=== PATIENT | male | born 1975 | race Caucasian/White ===

== ENCOUNTER 2021-12-13 03:01 | Emergency (ER) | payer OTHER ==
[~2021-12-13] VITALS: Ht 165.1 cm; Wt 84.8 kg
[2021-12-13 03:38] VITALS: BP 150/90
--- NOTE | 2021-12-13 03:42 | NUR ---
to lobby a/w bed ambulatory
--- NOTE | 2021-12-13 04:57 | NUR ---
MD Bonilla called for patient-- no answer at this time
--- NOTE | 2021-12-13 05:35 | NUR ---
MD Bonilla called for patient-- no answer at this time
--- NOTE | 2021-12-13 05:35 | NUR ---
PATIENT LEFT WITHOUT BEING SEEN BY DR ORTIZ. NO FURTHER CARE PROVIDED FOR PATIENT.
--- NOTE | 2021-12-13 05:35 | NUR ---
Elliot mcgowan in [facility] - 12/13/21 at 0541 by [email or web address] PT LORAINE
== END 2021-12-13 04:57 | disposition left against medical advice (07) ==
LOC: MED 03:01
DX: F41.9 Anxiety disorder, unspecified (principal); Z53.21 Procedure and treatment not carried out due to patient leaving prior to being seen by health care provider